=== PATIENT | female | born 1980 | race Caucasian/White ===

== ENCOUNTER → 2016-09-24 | Outpatient (CLI) | payer OTHER ==
[~2016-09-24] MED LIST: BENTYL10 MG PO; KARIVA 28 DAY1 EACH PO; LOPRESSOR25 MG PO; SINGULAIR10 MG PO; THERA-VITE W/ B1 TAB PO; ZOFRAN4 MG PO; ZYRTEC10 MG PO
== END | disposition disaster alternative care site (69) ==
LOC: GRAD 12:37
DX: G54.0 Brachial plexus disorders (principal); S22.32XD Fracture of one rib, left side, subsequent encounter for fracture with routine healing; W19.XXXA Unspecified fall, initial encounter

== ENCOUNTER 2016-10-06 12:50 | Observation (INO) | payer OTHER ==
[~2016-10-06] VITALS: Ht 167.6 cm; Wt 106.4 kg
--- NOTE | ~2016-10-06 | CON ---
PATIENT'S NAME: SYLVIA PATEL [facility] AGE: 35 Y [address] ROOM: [place] [id number] LOCATION: [facility] [place] ADMIT DATE: 10/06/2016 Consultation DISCHARGE DATE: FAMILY PHYSICIAN: Mp Trinidad MD ATTENDING PHYSICIAN: Mp Trinidad DATE OF CONSULTATION: 10/06/2016 REASON FOR CONSULT: Diarrhea and history of celiac disease. HISTORY OF PRESENT ILLNESS: This is a 35-year-old female, who was admitted in view of increasing diarrhea, nausea, vomiting, inability to eat, and is undergoing IV hydration. The patient thinks she has "flare up of her celiac" even though she has been following a gluten free diet. She states she was diagnosed to have celiac disease about 5 years ago, however, recently has had trouble eating whereby everything "goes through." There is diffuse abdominal cramping which gets better after bowel movement and some minimal blood in the stool. She tells me she has had a previous colonoscopy several years ago to rule out Crohn's and it was normal. Her sister has Crohn's. She is able to tolerate a clear liquid diet and had 2 or 3 stools since after admission. There is no associated fever, chills, or weight loss. No recent use of antibiotics. PAST MEDICAL HISTORY: 1. Hypertension. 2. Celiac disease. PAST SURGICAL HISTORY: Cholecystectomy 2006 for gallstones, appendectomy, knee surgery, and upper and lower GI endoscopy in 2011. MEDICATIONS: At home included metoprolol, Zyrtec, and control pill. Allergy medicine, she takes multivitamin and Tylenol over the counter. ALLERGIES: STATED VICODIN AND IODINE WHICH CAUSES HER TO HAVE ANAPHYLAXIS. FAMILY HISTORY: Hypertension and diabetes. Mother has lupus and sister has Crohn's. REVIEW OF SYSTEMS: PATIENT'S NAME: SYLVIA PATEL [facility] AGE: 35 Y [address] ROOM: [place] [id number] LOCATION: [facility] [place] ADMIT DATE: 10/06/2016 Consultation DISCHARGE DATE: FAMILY PHYSICIAN: Mp Trinidad MD ATTENDING PHYSICIAN: Mp Trinidad The 10 point review of systems is otherwise negative except as noted above. PHYSICAL EXAMINATION: GENERAL: A well-developed, well-nourished female, in no acute distress. She is afebrile. VITAL SIGNS: As noted in nursing sheet are stable. HEENT: Nonicteric sclerae. Atraumatic normocephalic. Pupils are round and reactive. NECK: Supple. No palpable nodes. No thyromegaly. No JVD. CHEST: Clear to auscultation, palpation and percussion. HEART: S1 and S2 normal. No murmurs or gallops. ABDOMEN: Soft and benign with mild diffuse tenderness. Bowel sounds are present. RECTAL: Not done. EXTREMITIES: No edema. Pulses well palpable. NEUROLOGIC: Awake, alert, and appropriate. No focal deficits. LABORATORY DATA: Pending. ASSESSMENT AND PLAN: A 35-year-old female presenting with acute onset of diarrhea of 1 week duration with a background history of celiac, more than likely this is infectious in etiology and will obtain appropriate stool cultures, Giardia, and crypto antigen. She has had some blood in the stools, and therefore, a flexible sigmoidoscopy along with upper endoscopy and duodenal biopsies (Giardia antigen and celiac) will be carried out. In the interim, we will hydrate her and treat her symptomatically, pending further evaluation. Further recommendations pending her clinical course. CAYETANO GARAY MD AM/ye /[id number] d: 10/06/16 1857 t: 10/07/16 1343, CONSULTATION REPORT
--- NOTE | 2016-10-06 13:33 | NUR ---
Pt is 35 y/o female admit for dehydration/diarrhea/abdominal pain for . Allergies to vicodin,shellfish,iodine. Red bracelet on. Hx seasonal allergies,bloody stools,diarrhea,abd pain,cramping,htn. Pt resides at home with her family. PT states everything she eats runs through her and causes abd cramping and pain. PT to receive IV fluids and GI consult.
[2016-10-06] MEDS ORDERED: ZYRTEC10 MG PO (13:49)
[2016-10-06] MEDS ORDERED: KARIVA 28 DAY1 EACH PO (13:50)
[2016-10-06] MEDS ORDERED: THERA-VITE W/ B1 TAB PO (13:50)
[2016-10-06] MEDS ORDERED: LOPRESSOR25 MG PO (13:50)
--- NOTE | 2016-10-06 15:43 | NUR ---
Significant Event: Patient alert and oriented. Cooperative with all cares. Came from [facility] today. Got 1.5L of IVF at the clinic came to [facility]. Started fluids in the right hand at 125ml/hr NS. Up independently. Patient states being very cold. Temp okay at 97.7. Gave warm blankets. Is having lots of abdominal cramping does walk with a bend at times because the pain is so bad. Stated having 4 diarrhea stools today. VSS on room air. Follow up:Abdominal cramping, GI to see
--- NOTE | 2016-10-07 04:49 | NUR ---
Significant Event: Pt alert and oriented. Cooperative with cares. Has rested off and on throughout the night. Up ad john in room. IV fluids infusing. Pt complains of abdominal cramping at times. Imodium given x1. C-diff and O&P screen negative. Has been NPO since midnight for EGD/Flex sig in AM. Will need a enema 1 hour prior to flex sig. Pt did noticed quite a bit of blood in 1 stool, hat placed in toilet to monitor stools. VSS. Will continue to monitor at this time. Follow up:
[2016-10-07 04:53] LABS: BASOPHIL # 0.1 K/uL (0.0-0.2); EOSINOPHIL # 0.6 K/uL (0.0-0.5); EOSINOPHIL % 7.5 %; HEMATOCRIT 32.9 % (33.0-46.0); HEMOGLOBIN 10.8 g/dL (11.0-15.0); IMMATURE GRANULOCYTE % 0.1 %; LYMPHOCYTE # 3.1 K/uL (0.8-4.0); MCH 27.8 pg (27.0-34.0); MCHC 32.8 gm/dL (32.0-36.5); MCV 84.8 fl (83.0-98.0); MONOCYTE # 0.6 K/uL (0.0-1.0); MONOCYTE % 8.3 %; MPV 10.5 fl (9.4-12.4); NEUTROPHIL % 41.1 %; NRBC % 0 /100WBC (0-0.00); PLATELET COUNT 242 K/uL (150-450); RBC 3.88 M/uL (3.50-5.50); RDW-CV 13.8 % (11.9-14.6); WBC 7.3 K/uL (4.0-11.0)
--- NOTE | 2016-10-07 14:14 | NUR ---
Attempted to meet with patient but she was down for her procedure. Will attempt to meet with her later today.
[2016-10-07] MEDS ORDERED: SINGULAIR10 MG PO (15:09)
--- NOTE | 2016-10-07 16:33 | NUR ---
Significant Event:Is A/O.Has IV in Rt.hand.Had EGD & sigmoidoscopy done today.Did some biopsies.Still alot of abd cramping.Had a bentyl 10mg at 1305 which helped alittle.She had a liq greenish stool with mucus after getting fleets enema prior to her procedure.Voiding ok.Is on gluten free diet.No N/V. Follow up:
--- NOTE | 2016-10-08 01:36 | NUR ---
SIGNIFICANT EVENT: VSS. IV TO R)H RUNNING NS @125ML/HR. UP AD TD. COMPLAINS OF ABDOMINAL CRAMPING, BENTYL FOR PAIN Q6HRS, LAST GIVEN @2108. ERCP ON 10/07 WITH BIOPSIES. TOLERATED REGULAR DIET WELL. POSSIBLE DISCHARGE IN THE AM.
[2016-10-08] MEDS ORDERED: BENTYL10 MG PO (09:51)
[2016-10-08] MEDS ORDERED: ZOFRAN4 MG PO (09:52)
--- NOTE | 2016-10-08 10:34 | NUR ---
DISCHARGE: Pt. was educated on d/c instructions, upper and lower GI d/c instructions, and new medications: bentyl and zofran. Patient verbalized understanding of teaching. No questions or concerns. Left with all belongings and prescriptions. IV removed by primary nurse. Taken to front door by aide and driven home by .
== END 2016-10-08 10:34 | disposition disaster alternative care site (69) ==
LOC: GMSU 12:50 → EDSTATUS 13:00 → GMSU 10-08 10:34
PROVIDERS: Internal Medicine Gastroenterology; ADMIT Family Medicine
PROC: 0DB98ZX Excision of Duodenum, Via Natural or Artificial Opening Endoscopic, Diagnostic (ICD-10-PCS; principal; 2016-10-07)
PROC: 0DB68ZX Excision of Stomach, Via Natural or Artificial Opening Endoscopic, Diagnostic (ICD-10-PCS; 2016-10-07)
PROC: 0DBE8ZX Excision of Large Intestine, Via Natural or Artificial Opening Endoscopic, Diagnostic (ICD-10-PCS; 2016-10-07)
DX: K52.9 Noninfective gastroenteritis and colitis, unspecified (principal); I10 Essential (primary) hypertension; Z90.49 Acquired absence of other specified parts of digestive tract; Z98.890 Other specified postprocedural states; Z79.899 Other long term (current) drug therapy; Z91.041 Radiographic dye allergy status; Z88.8 Allergy status to other drugs, medicaments and biological substances
CPT/HCPCS: G0378; G0379; J7030